=== PATIENT | male | born 1940 | race Caucasian/White ===

== ENCOUNTER 2020-02-09 14:55 | Inpatient (IN) ==
[2020-02-10] MEDS: *HR* Heparin 5,000 UNIT/ML VIAL SQ SCH ×2 (06:05→17:29)
[2020-02-10] MEDS: Famotidine 20 MG TABLET PO SCH (06:05)
[2020-02-10 06:13] LABS: Basophils % 0.5 %; Eosinophils # 0.3 K/mcL (0.0-0.6); Eosinophils % 4.3 %; Hemoglobin 9.8 g/dL (12.9-16.9); Lymphocytes # 0.7 K/mcL (0.6-4.6); Lymphocytes % 12.2 %; Mean Corpuscular HGB Conc 33.8 g/dL (31.6-35.5); Mean Corpuscular Hemoglobin 29.9 pg (28.0-33.3); Mean Corpuscular Volume 88.4 fL (83.0-100.0); Monocytes # 0.6 K/mcL (0.0-1.3); Monocytes % 9.9 %; Neutrophils # 4.2 K/mcL (1.6-8.9); Platelet Count 235 K/mcL (140-400); Red Blood Count 3.28 M/mcL (4.19-5.50); Red Cell Distribution Width 12.8 % (11.5-14.5); Segmented Neutrophils % 72.1 %; White Blood Count 5.8 K/mcL (4.3-11.1)
[2020-02-10 06:19] LABS: INR 1.1; Prothrombin Time 12.7 Seconds (9.4-12.1)
[2020-02-10 06:22] LABS: Activated Partial Thrombo Time 23.1 Seconds (26.0-36.0)
[2020-02-10 06:27] LABS: BUN/Creatinine Ratio 19 (6-26); Blood Urea Nitrogen 16 mg/dL (8-23); Calcium 8.7 mg/dL (8.6-10.3); Carbon Dioxide 30 mEq/L (23-29); Chloride 101 mEq/L (98-107); Glucose 107 mg/dL (70-105); Osmolality,Calculated 290 (280-300); Potassium 3.6 mEq/L (3.5-5.1); Sodium 139 mEq/L (136-145); eGFR For African Americans > 60 (> 60); eGFR For Non-African Americans > 60 (> 60)
[2020-02-10] MEDS: Multivit/Ca/Min/Fe/FA 1 TAB TABLET PO SCH (09:27)
[2020-02-10] MEDS: DilTIAZem SR (12hr) 60 MG CAP.ER.12H PO SCH (09:27)
[2020-02-10] MEDS: lisinopriL 10 MG TABLET PO SCH (09:27)
[2020-02-10] MEDS: Acetaminophen 325 MG TABLET PO PRN ×2 (12:01→19:39)
[2020-02-10] MEDS: Nystatin SUSP 5 ML UD.LIQ PO SCH ×3 (14:31→19:38)
[2020-02-10] MEDS: 0.9 % Sodium Chloride 1,000 ML IVC SCH (14:32)
[2020-02-11] MEDS: 0.9 % Sodium Chloride 1,000 ML IVC SCH (00:38)
[2020-02-11] MEDS: DilTIAZem SR (12hr) 60 MG CAP.ER.12H PO SCH ×3 (00:39→19:36)
[2020-02-11] MEDS: Famotidine 20 MG TABLET PO SCH (04:36)
[2020-02-11] MEDS: *HR* Heparin 5,000 UNIT/ML VIAL SQ SCH ×2 (04:36→19:03)
[2020-02-11] MEDS: Nystatin SUSP 5 ML UD.LIQ PO SCH ×4 (09:42→19:36)
[2020-02-11] MEDS: Multivit/Ca/Min/Fe/FA 1 TAB TABLET PO SCH (09:43)
[2020-02-11] MEDS: lisinopriL 10 MG TABLET PO SCH (09:58)
[2020-02-11] MEDS: Melatonin 3 MG TABLET PO PRN (19:36)
[2020-02-11] MEDS: Acetaminophen 325 MG TABLET PO PRN (19:36)
[2020-02-11] MEDS: Valproic Acid 250 MG CAPSULE PO SCH (19:37)
[2020-02-12] MEDS: *HR* Heparin 5,000 UNIT/ML VIAL SQ SCH ×2 (04:36→17:35)
[2020-02-12] MEDS: Famotidine 20 MG TABLET PO SCH (04:36)
[2020-02-12] MEDS: lisinopriL 10 MG TABLET PO SCH (09:10)
[2020-02-12] MEDS: DilTIAZem SR (12hr) 60 MG CAP.ER.12H PO SCH ×2 (09:10→21:53)
[2020-02-12] MEDS: Multivit/Ca/Min/Fe/FA 1 TAB TABLET PO SCH (09:11)
[2020-02-12] MEDS: Nystatin SUSP 5 ML UD.LIQ PO SCH ×4 (09:18→21:54)
[2020-02-12] MEDS: Melatonin 3 MG TABLET PO PRN (21:53)
[2020-02-12] MEDS: Valproic Acid 250 MG CAPSULE PO SCH (21:57)
[2020-02-13] MEDS: Famotidine 20 MG TABLET PO SCH (05:25)
[2020-02-13] MEDS: *HR* Heparin 5,000 UNIT/ML VIAL SQ SCH ×2 (05:28→17:25)
[2020-02-13] MEDS: lisinopriL 10 MG TABLET PO SCH (09:15)
[2020-02-13] MEDS: Nystatin SUSP 5 ML UD.LIQ PO SCH ×4 (09:15→22:37)
[2020-02-13] MEDS: DilTIAZem SR (12hr) 60 MG CAP.ER.12H PO SCH ×2 (09:16→22:34)
[2020-02-13] MEDS: Multivit/Ca/Min/Fe/FA 1 TAB TABLET PO SCH (09:16)
[2020-02-13] MEDS: Melatonin 3 MG TABLET PO PRN (22:34)
[2020-02-13] MEDS: Acetaminophen 325 MG TABLET PO PRN (22:35)
[2020-02-13] MEDS: Valproic Acid 250 MG CAPSULE PO SCH (22:36)
[2020-02-14] MEDS: Famotidine 20 MG TABLET PO SCH (05:30)
[2020-02-14] MEDS: *HR* Heparin 5,000 UNIT/ML VIAL SQ SCH ×2 (05:32→17:05)
[2020-02-14] MEDS: lisinopriL 10 MG TABLET PO SCH (09:06)
[2020-02-14] MEDS: DilTIAZem SR (12hr) 60 MG CAP.ER.12H PO SCH ×2 (09:06→21:51)
[2020-02-14] MEDS: Multivit/Ca/Min/Fe/FA 1 TAB TABLET PO SCH (09:06)
[2020-02-14] MEDS: Nystatin SUSP 5 ML UD.LIQ PO SCH ×4 (09:06→21:51)
[2020-02-14] MEDS: Melatonin 3 MG TABLET PO PRN (21:48)
[2020-02-14] MEDS: Valproic Acid 250 MG CAPSULE PO SCH (21:48)
[2020-02-14] MEDS: Acetaminophen 325 MG TABLET PO PRN (21:51)
[2020-02-15] MEDS: Famotidine 20 MG TABLET PO SCH (05:02)
[2020-02-15] MEDS: *HR* Heparin 5,000 UNIT/ML VIAL SQ SCH ×2 (05:03→17:05)
[2020-02-15] MEDS: Multivit/Ca/Min/Fe/FA 1 TAB TABLET PO SCH (08:53)
[2020-02-15] MEDS: lisinopriL 10 MG TABLET PO SCH (08:53)
[2020-02-15] MEDS: Nystatin SUSP 5 ML UD.LIQ PO SCH ×4 (08:53→22:17)
[2020-02-15] MEDS: DilTIAZem SR (12hr) 60 MG CAP.ER.12H PO SCH ×2 (08:53→22:15)
[2020-02-15] MEDS: Melatonin 3 MG TABLET PO PRN (22:15)
[2020-02-15] MEDS: Valproic Acid 250 MG CAPSULE PO SCH (22:16)
[2020-02-16] MEDS: Famotidine 20 MG TABLET PO SCH (05:33)
[2020-02-16] MEDS: *HR* Heparin 5,000 UNIT/ML VIAL SQ SCH ×2 (05:33→17:29)
[2020-02-16] MEDS: Nystatin SUSP 5 ML UD.LIQ PO SCH ×4 (08:17→20:05)
[2020-02-16] MEDS: lisinopriL 10 MG TABLET PO SCH (08:17)
[2020-02-16] MEDS: DilTIAZem SR (12hr) 60 MG CAP.ER.12H PO SCH ×2 (08:17→20:05)
[2020-02-16] MEDS: Multivit/Ca/Min/Fe/FA 1 TAB TABLET PO SCH (08:17)
[2020-02-16 17:45] LABS: Bilirubin,Urine Negative (Negative); Blood,Urine Negative (Negative); Clarity,Urine Clear (Clear); Color,Urine Yellow (Yellow); Glucose,Urine (UA) Normal (Normal); Ketones,Urine Trace mg/dL (Negative); Leukocyte Esterase,Urine Negative (Negative); Nitrite,Urine Negative (Negative); Protein,Urine Negative (Neg-Trace); Urobilinogen,Urine Normal (Normal)
[2020-02-16] MEDS: Valproic Acid 250 MG CAPSULE PO SCH (20:10)
[2020-02-16 21:03] LABS: Adenovirus Not Detected (Not Detect); Bordetella Pertussis Not Detected (Not Detect); Chlamydophila pneumoniae Not Detected (Not Detect); Coronavirus 229E Not Detected (Not Detect); Coronavirus HKU1 Not Detected (Not Detect); Coronavirus NL63 Not Detected (Not Detect); Coronavirus OC43 Not Detected (Not Detect); Human Metapneumovirus Not Detected (Not Detect); Human Rhinovirus/Enterovirus Not Detected (Not Detect); Influenza A Subtype 2009 H1 Not Detected (Not Detect); Influenza B Not Detected (Not Detect); Mycoplasma pneumoniae Not Detected (Not Detect); Parainfluenza Virus 1 Not Detected (Not Detect); Parainfluenza Virus 2 Not Detected (Not Detect); Parainfluenza Virus 3 Not Detected (Not Detect); Parainfluenza Virus 4 Not Detected (Not Detect); Respiratory Syncytial Virus Not Detected (Not Detect); SARS-CoV-2 Not Detected (Not Detect)
[2020-02-16] MEDS: Melatonin 3 MG TABLET PO PRN (21:25)
[2020-02-17] MEDS: Famotidine 20 MG TABLET PO SCH (05:22)
[2020-02-17] MEDS: *HR* Heparin 5,000 UNIT/ML VIAL SQ SCH (05:22)
[2020-02-17 07:58] VITALS: BP 159/61
[2020-02-17] MEDS: Nystatin SUSP 5 ML UD.LIQ PO SCH ×2 (09:42→13:16)
[2020-02-17] MEDS: DilTIAZem SR (12hr) 60 MG CAP.ER.12H PO SCH (09:43)
[2020-02-17] MEDS: Multivit/Ca/Min/Fe/FA 1 TAB TABLET PO SCH (09:43)
[2020-02-17] MEDS: lisinopriL 10 MG TABLET PO SCH (09:43)
[2020-02-17] MEDS ORDERED: FLU Vac QV 20-21 (6Month+)/PF 0.5 ML SYRINGE IM ONE (14:08)
== END 2020-02-17 15:38 | DRG 177 ==
LOC: INPGRE 20:36
PROVIDERS: ADMIT Family Medicine; ATTEND Family Medicine